=== PATIENT | female | born 1975 | race African-American/Black ===

== ENCOUNTER 2016-05-19 13:21 | Emergency (ER) ==
[2016-05-19 13:35] VITALS: BP 151/97
[2016-05-19 13:55] LABS: URINE SOURCE CLEAN CATCH
[2016-05-19 14:16] LABS: BILIRUBIN URINE NEGATIVE (NEGATIVE); BLOOD URINE 2+ (NEGATIVE); CLARITY CLEAR (CLEAR); COLOR YELLOW; LEUKOCYTES URINE 1+ (NEGATIVE); NITRITE URINE NEGATIVE (NEGATIVE); PROTEIN URINE 1+(30 mg/dL) mg/dL (NEGATIVE); SP GRAVITY URINE 1.025; UROBILINOGEN URINE NORMAL
[2016-05-19 14:17] LABS: URINE CULTURE PL NEEDED? YES; URINE EPITHELIAL CELLS >10 /HPF (<10)
--- NOTE | 2016-05-19 14:18 | PROVIDER DOCUMENTATION ---
HPI-Female /OB/Breast - General Chief Complaint: Female Stated Complaint: YEAST INFECTION Time Seen by Provider: 05/19/16 14:15 Source: reports: patient Allergies/Adverse Reactions: Patient Allergies Allergy/AdvReac Type Severity Reaction Status Date / Time No Known Allergies Allergy Verified 05/19/16 13:35 Home Medications: Losartan [Cozaar] 100 mg PO DAILY 04/22/15 Metformin E.r. [Glucophage Xr] 850 mg PO TID 12/09/15 - History of Present Illness-Female /OB Nature of Presenting Problem: REPORTS YEAST INFECTION CALLED PCP 3 DAY MEDICATION DIFLUCAN CAME BACK. BEEN GOING ON FOR 2WEEKS. REPORTS IS A DIABETIC AND SUGAR BEEN RUNNING HIGH, REPORTS VAGINAL ITCHING,BURNING,VAGINAL DISCHARGE LIKE COTTAGE CHEESE. Does patient report she is ?: No Location of complaint: reports: vaginal Quality of Pain: reports: burning Severity in ED: reports: severe Onset/Duration: reports: other (2WEEKS) Timing: reports: still present Similar Symptoms Previously?: Yes Recently seen or treated by another doctor?: Yes Review of Systems - Adult - REVIEW OF SYSTEMS - ADULT Constitutional: denies: chills, fever, fatique Eyes: reports: no symptoms reported Ears, Nose, Mouth & Throat: reports: no symptoms reported Cardiovascular: denies: chest pain, irregular heart rate, orthopnea Respiratory: reports: no symptoms reported Gastrointestinal: denies: abdominal pain, diarrhea, nausea, vomiting Genitourinary: reports: see HPI Musculoskeletal: reports: no symptoms reported Integumentary: reports: no symptoms reported Neurological: reports: no symptoms reported Psychiatric: reports: no symptoms reported Endocrine: reports: no symptoms reported Hematologic/Lymphatic: reports: no symptoms reported Allergic/Immunologic: reports: no symptoms reported All Other Systems: Reviewed and Negative Past History - Adult - PAST MEDICAL HISTORY-ADULT Review of Records: reports: Nursing Assessment Review, Medications Reviewed Major Childhood Illnesses: reports: denies history Cardiovascular: reports: HTN Respiratory: reports: denies history Gastrointestinal: reports: denies history Genitourinary: reports: denies history Musculoskeletal: reports: denies history Psychiatric: reports: depression Endocrine/Immune: reports: anemia, Diabetes - PRIOR SURGERIES/PROCEDURES Surgical/Procedure History: reports: , other (facial lac repair) - IMMUNIZATION STATUS Childhood Immunizations: See Nurse Assessment Flu Vaccine: See Nurse Assessment - FAMILY HISTORY Family History: reviewed, not pertinent - SOCIAL HISTORY Smoking: cigarettes, less than 1 pack/day Substance Use: none/never Physical Exam-General - PHYSICAL EXAM-ADULT Initial Vital Signs Reviewed: Yes - CONSTITUTIONAL General Appearance: appears well, alert, no apparent distress - EYES Eyes: PERRL/EOMI, pink conjunctivae - HEAD, EARS, NOSE, MOUTH & THROAT HENMT: normocephalic/atraumatic, moist mucous membranes, normal ENT inspection - NECK Neck: non-tender, full range of motion, normal inspection - RESPIRATORY Respiratory: chest non-tender, lungs clear, normal breath sounds - CARDIOVASCULAR Cardiovascular: normal peripheral pulses, regular rate, rhythm, no edema - GASTROINTESTINAL (ABDOMEN) Abdominal Exam: normal bowel sounds, non tender, soft - GENITOURINARY Female Genitalia/Pelvic Exam: discharge, other (YEAST;REDNESS) - LYMPHATIC Lymphatic: no adenopathy - MUSCULOSKELETAL Back Exam: normal inspection, no CVA tenderness, no vertebral tenderness Extremity: normal range of motion, non-tender, normal gait - SKIN Integumentary: normal color, normal turgor, warm/dry - NEUROLOGIC Neurologic: grossly normal, no motor/sensory deficits - PSYCHIATRIC Psych/Mental Status: normal mood/affect, normal thought content, normal thought process, oriented x 3 Progress - PLAN OF CARE/RESULTS Progress/Plan/Lab Results: Orders Category Date Time Status FSBS/Accucheck Result NOW Care 05/19/16 13:38 Active TEST-URINE [PREG] Stat Lab 05/19/16 13:[address] W/POSS RFLX CULT [URINALYSIS] Stat Lab 05/19/16 13:35 Results Vital Signs - 24 hr 05/19/16 13:31 Temperature 98.7 F Pulse Rate 106 H Respiratory 18 Rate Blood Pressure 151/97 O2 Sat by Pulse 100 Oximetry Laboratory Tests 05/19/16 05/19/16 05/19/16 13:35 13:35 13:35 Urine Source Cancelled CLEAN CATCH Urine Color Cancelled YELLOW Urine Clarity Cancelled CLEAR Urine pH Cancelled 5.0 Ur Specific [place] Cancelled 1.025 Urine Protein Cancelled 1+(30 mg/dL) A Urine Ketones Cancelled TRACE Urine Blood Cancelled 2+ A Urine Nitrite Cancelled NEGATIVE Urine Bilirubin Cancelled NEGATIVE Urine Urobilinogen Cancelled NORMAL Urine Microscopic RBC 10-20 A Urine WBC Cancelled 1+ A Urine Microscopic WBC 10-20 A Ur Epithelial Cells >10 A Urine Bacteria 2+ Urine Glucose Cancelled 2+(250 mg/dL) A Urine Test NEGATIVE Departure - Departure Time of Disposition Order: 16:55 DIAGNOSIS: Vaginal discharge, Suri infection UTI (urinary tract infection) Qualifiers: Urinary tract infection type: site unspecified Hematuria presence: without hematuria Qualified Code(s): N39.0 - Urinary tract infection, site not specified Disposition: HOME 01 Certified Medical Emergency: Emergent Condition: Stable Additional Instructions: FOLLOW UP WITH PCP ED Follow Up Instructions: You have been treated by a care provider in the Emergency Department. These instructions are being provided to you so you can have an understanding of how to care for yourself upon discharge. Upon discharge from the Emergency Department, you are responsible for making arrangements for follow-up care by a physician of your choice. Take all prescribed medications as directed. Return to the Emergency Department immediately for any new or worsening symptoms. You may call the Physician Referral phone number at [phone] to obtain a list of Physicians who are taking new patients. Referrals: Caleb Iyer MD [Primary Care Provider] - Attestation - Scribe Verification/Attestation Scribe:: Diana Lorenz Acting as Scribe for:: Yajaira Vargas Scribe documention review:: This chart was documented by a scribe and accurately reflects the service the provider performed and the decisions made by the provider. - Physician/ Mid-level Attestation Patient care was provided by Mid-level provider (DIVERSITY INTERN/PA):: Yes Mid-level provider:: Yajaira Vargas Mid-level documentation review:: The Mid-level provider documentation, treatment plan and medical decision making was reviewed by the physician who agrees with all treatment and medical decision making by the MLP.
[2016-05-19] MEDS ORDERED: ROCEPHIN IM ONE (16:46)
[2016-05-19] MEDS ORDERED: XYLOCAINE-MPF 1% INJ ONE (16:46)
== END 2016-05-19 17:35 | disposition home or self-care (01) ==
LOC: P.ED 13:21
DX: B37.3 Candidiasis of vulva and vagina (principal); N39.0 Urinary tract infection, site not specified; E11.9 Type 2 diabetes mellitus without complications; L29.8 Other pruritus; N89.8 Other specified noninflammatory disorders of vagina; I10 Essential (primary) hypertension; F32.9 Major depressive disorder, single episode, unspecified; D64.9 Anemia, unspecified; F17.210 Nicotine dependence, cigarettes, uncomplicated; Z79.899 Other long term (current) drug therapy; Z79.84 Long term (current) use of oral hypoglycemic drugs
CPT/HCPCS: 81001; 81025; 82948; 87088; 87491; 87591; J0696